=== PATIENT | male | born 1965 | race Caucasian/White ===

== ENCOUNTER 2019-06-19 13:23 | Emergency (ER) | payer BC ==
--- NOTE | 2019-06-19 13:33 | EDM.PDOC ---
ED HPI GENERAL MEDICAL PROBLEM - General Chief Complaint: Abdominal Pain Stated Complaint: KIDNEY STONE Time Seen by Provider: 06/19/19 13:32 Source of Information: Reports: Patient History Limitations: Reports: No Limitations - History of Present Illness INITIAL COMMENTS - FREE TEXT/NARRATIVE: Patient is a 54-year-old male is complaining of having left pelvic pain is been ongoing for the past 2 weeks. Patient states pain is worse with movement describes as sharp stabbing in nature. He was seen by his PCP for this and had a hip x-ray the patient feels this is more abdominal. He rates the pain is 7-8 out of 10 in intensity described as sharp and stabbing. He is not feeling nauseous has had no vomiting. He denies any dysuria or hematuria. He has been taking some ibuprofen with partial relief of his pain symptoms. Denies any bloody or tarry looking stools. Pain is not worse with appetite but is worse with movement. Duration: Week(s): (two) Location: Reports: Pelvis Quality: Reports: Sharp, Stabbing Severity: Severe Improves with: Reports: Rest Worsens with: Reports: Movement Associated Symptoms: Reports: No Other Symptoms Treatments [employer]OCIATE: Reports: NSAIDS Left Lower Abdomen Pain Score (Numeric/FACES): 8 - Related Data Allergies Allergy/AdvReac Type Severity Reaction Status Date / Time No Known Allergies Allergy Verified 06/19/19 13:32 Home Meds: Home Meds Levothyroxine [Synthroid] 50 mcg PO DAILY 06/19/19 [History] lisinopriL [Lisinopril] 20 mg PO DAILY 06/19/19 [History] Past Medical History Other Gastrointestinal History: Hepatitis C - Past Surgical History Other Male Surgeries/Procedures: hx ESWL with stent placement Other Musculoskeletal Surgeries/Procedures:: hx shoulder arthroscopy ED ROS GENERAL - Review of Systems Review Of Systems: Comprehensive ROS is negative, except as noted in HPI. ED EXAM, GI/ABD - Physical Exam Exam: See Below Text/Narrative:: Exam: See Below Exam Limited By: No Limitations Head: Atraumatic Neck: Normal Inspection. No: Carotid Bruit, Lymphadenopathy (R) Respiratory/Chest: No Respiratory Distress, Lungs Clear, Normal Breath Sounds, No Accessory Muscle Use. No: Chest Non-Tender Cardiovascular: Normal Peripheral Pulses, Regular Rate, Rhythm, No Edema, No JVD GI/Abdominal: Normal Bowel Sounds, Tender slightly on left pelvis. No rebound no guarding no mass appreciated. No inguinal hernia. Back Exam: Normal Inspection. No: CVA Tenderness (R) Extremities: Normal Inspection. No: No Pedal Edema Neurological: Alert, Oriented, Normal Cognition Psychiatric: Normal Affect Skin Exam: Warm Lymphatic: No Adenopathy Course - Vital Signs Text/Narrative:: CT scan urine and other lab work all returned normal. I am uncertain what is causing patient's pain symptoms are probably is musculoskeletal in etiology. He has an appointment to follow-up with his PCP later this week. Last Recorded V/S: Last Vital Signs Temp 36.7 C 06/19/19 13:34 Pulse 81 06/19/19 13:34 Resp 16 06/19/19 13:34 BP 157/103 H 06/19/19 13:34 Pulse Ox 100 06/19/19 13:34 - Orders/Labs/Meds Labs: Laboratory Tests 06/19/19 06/19/19 06/19/19 Range/Units 13:42 13:42 15:04 WBC 8.73 (4.0-11.0) K/uL RBC 4.93 (4.50-5.90) M/uL Hgb 15.7 (13.0-17.0) g/dL Hct 45.3 (38.0-50.0) % MCV 91.9 (80.0-98.0) fL MCH 31.8 (27.0-32.0) pg MCHC 34.7 (31.0-37.0) g/dL RDW Std Deviation 43.0 (28.0-62.0) fl RDW Coeff of Burt 13 (11.0-15.0) % Plt Count 98 L (150-400) K/uL MPV 13.60 H (7.40-12.00) fL Neut % (Auto) 67.0 (48.0-80.0) % Lymph % (Auto) 22.9 (16.0-40.0) % [place] % (Auto) 5.8 (0.0-15.0) % Eos % (Auto) 4.0 (0.0-7.0) % Baso % (Auto) 0.3 (0.0-1.5) % Neut # (Auto) 5.8 H (1.4-5.7) K/uL Lymph # (Auto) 2.0 (0.6-2.4) K/uL [place] # (Auto) 0.5 (0.0-0.8) K/uL Eos # (Auto) 0.4 (0.0-0.7) K/uL Baso # (Auto) 0.0 (0.0-0.1) K/uL Nucleated RBC % 0.0 /100WBC Nucleated RBCs # 0 K/uL Sodium 143 (136-148) mmol/L Potassium 4.2 (3.5-5.1) mmol/L Chloride 104 (98-107) mmol/L Carbon Dioxide 26.8 (21.0-32.0) mmol/L BUN 12 (7.0-18.0) mg/dL Creatinine 0.9 (0.8-1.3) mg/dL Est Cr Clr Drug Dosing 105.84 mL/min Estimated GFR (MDRD) > 60.0 ml/min Glucose 88 (74-106) mg/dL Calcium 9.7 (8.5-10.1) mg/dL Total Bilirubin 0.4 (0.2-1.0) mg/dL AST 21 (15-37) IU/L ALT 20 (14-63) IU/L Alkaline Phosphatase 79 (46-116) U/L Total Protein 8.2 (6.4-8.2) g/dL Albumin 4.3 (3.4-5.0) g/dL Globulin 3.9 (2.6-4.0) g/dL Albumin/Globulin Ratio 1.1 (0.9-1.6) Urine Color YELLOW Urine Appearance CLEAR Urine pH 7.0 (5.0-8.0) Ur Specific [place] 1.010 (1.001-1.035) Urine Protein NEGATIVE (NEGATIVE) mg/dL Urine Glucose (UA) NEGATIVE (NEGATIVE) mg/dL Urine Ketones NEGATIVE (NEGATIVE) mg/dL Urine Occult Blood NEGATIVE (NEGATIVE) Urine Nitrite NEGATIVE (NEGATIVE) Urine Bilirubin NEGATIVE (NEGATIVE) Urine Urobilinogen 0.2 (<2.0) EU/dL Ur Leukocyte Esterase NEGATIVE (NEGATIVE) Urine RBC 1-3 (0-2/HPF) Urine WBC 0-2 (0-5/HPF) Ur Epithelial Cells OCCASIONAL (NONE-FEW) Urine Bacteria RARE (NEGATIVE) Urine Mucus LIGHT (NONE-MOD) Meds: Medications Discontinued Medications Generic Name Dose Route Start Last Admin Trade Name Earlene PRN Reason Stop Dose Admin Sodium Chloride 1,000 mls @ 999 mls/hr 06/19/19 13:58 06/19/19 14:10 Normal Saline IV 06/19/19 14:58 999 mls/hr .BOLUS ONE Administration Ketorolac Tromethamine 30 mg 06/19/19 13:58 06/19/19 14:12 Toradol IVPUSH 06/19/19 13:59 30 mg ONETIME ONE Administration Departure - Departure Time of Disposition: 15:29 Disposition: Home, Self-Care 01 Condition: Good Clinical Impression: Pelvic pain in male - Discharge Information Referrals: Fortino Locke MD [Primary Care Provider] - Forms: ED Department Discharge Additional Instructions: Ibuprofen with meals. Follow-up with PCP for recheck as scheduled. Return to emergency department any fever chills vomiting or worse pain. Care Plan Goals: The following information is given to patients seen in the emergency department who are being discharged to home. This information is to outline your options for follow-up care. We provide all patients seen in our emergency department with a follow-up referral. The need for follow-up, as well as the timing and circumstances, are variable depending upon the specifics of your emergency department visit. If you don't have a primary care physician on staff, we will provide you with a referral. We always advise you to contact your personal physician following an emergency department visit to inform them of the circumstance of the visit and for follow-up with them and/or the need for any referrals to a consulting specialist. The emergency department will also refer you to a specialist when appropriate. This referral assures that you have the opportunity for follow-up care with a specialist. All of these measure are taken in an effort to provide you with optimal care, which includes your follow-up. Under all circumstances we always encourage you to contact your private physician who remains a resource for coordinating your care. When calling for follow-up care, please make the office aware that this follow-up is from your recent emergency room visit. If for any reason you are refused follow-up, please contact the [facility] Emergency Department at and asked to speak to the emergency department charge nurse. Sepsis Event Note - Focused Exam Vital Signs: Vital Signs Temp Pulse Resp BP Pulse Ox 06/19/19 13:34 36.7 C 81 16 157/103 H 100 Date Exam was Performed: 06/19/19 Time Exam was Performed: 15:27
[2019-06-19] MEDS ORDERED: Sodium Chloride 0.9% 1,000 ML IV ONE (13:58)
[2019-06-19] MEDS ORDERED: Ketorolac 30 MG/ML SDV IVPUSH ONE (13:58)
[2019-06-19 14:24] LABS: BLOOD UREA NITROGEN,BUN 12 mg/dL (7.0-18.0); CARBON DIOXIDE,CO2 26.8 mmol/L (21.0-32.0); CHLORIDE,CL 104 mmol/L (98-107); GLUCOSE RANDOM 88 mg/dL (74-106); POTASSIUM,K 4.2 mmol/L (3.5-5.1); SODIUM,NA 143 mmol/L (136-148)
--- NOTE | 2019-06-19 14:56 | CT ---
CT abdomen and pelvis Technique: Multiple axial sections were obtained from above the dome of the diaphragm inferiorly through the pubic symphysis. Intravenous and oral contrast not utilized. Comparison: No previous abdominal imaging. Findings: Visualized lung bases show nothing acute. Liver contains no focal abnormality. Gallbladder contains no calcified gallstones. Spleen appears within normal limits. Adrenal glands show no nodule. 2 nonobstructing calculi are seen within the left kidney. Largest stone measures 4.7 mm. No ureteral dilatation or ureteral stone is seen. Pancreas is within normal limits. Gallbladder contains no calcified gallstones. Aorta shows atherosclerotic calcification which continues into the iliac vessels. No aneurysm is seen. No retroperitoneal adenopathy or mesenteric abnormalities are seen. Small fat-containing umbilical hernia is noted. Appendix is seen which is normal in size. No free fluid or inflammatory change is seen. Mild diverticuli are seen within the sigmoid and descending colon without inflammatory change of diverticulitis. Bone window settings were reviewed shows nothing acute. Impression: 1. 2 nonobstructing calculi within the left kidney. No ureteral dilatation or ureteral stone is seen. 2. Other findings believed to be incidental as noted above. Nothing acute is appreciated. Diagnostic code #2 This report was dictated in [place] Standard Time
[2019-06-19 15:50] VITALS: BP 148/93; PULSE 75
== END 2019-06-19 15:50 | disposition home or self-care (01) ==
LOC: MW.ED 13:23
DX: R10.2 Pelvic and perineal pain (principal); Z79.899 Other long term (current) drug therapy
CPT/HCPCS: 36415; 74176; 80053; 81001; 85025; 96361; 96374; 99284; J1885; J7030

== ENCOUNTER 2021-08-30 00:14 | Emergency (ER) | payer BC ==
[2021-08-30] MEDS ORDERED: Ketorolac 30 MG/ML SDV IVPUSH ONE (00:50)
[2021-08-30] MEDS ORDERED: Sodium Chloride 0.9% 20 ML SDV IV PRN (00:51)
[2021-08-30] MEDS ORDERED: Sodium Chloride 0.9% 1,000 ML IV ONE (00:52)
[2021-08-30 01:08] LABS: BLOOD UREA NITROGEN,BUN 17 mg/dL (7.0-18.0); CARBON DIOXIDE,CO2 26.1 mmol/L (21.0-32.0); CHLORIDE,CL 103 mmol/L (98-107); GLUCOSE RANDOM 108 mg/dL (74-106); SODIUM,NA 136 mmol/L (136-148)
[2021-08-30] MEDS ORDERED: Tamsulosin 0.4 MG Cap.ER PO STA (02:36)
[2021-08-30 02:51] VITALS: BP 145/99; PULSE 78
== END 2021-08-30 02:51 | disposition home or self-care (01) ==
LOC: MW.ED 00:14
DX: N13.2 Hydronephrosis with renal and ureteral calculous obstruction (principal); E03.9 Hypothyroidism, unspecified; I10 Essential (primary) hypertension; Z79.899 Other long term (current) drug therapy; Z72.0 Tobacco use
CPT/HCPCS: 36415; 74176; 80048; 81001; 85025; 96374; 99284; A9270; J1885; J7030

== ENCOUNTER 2023-06-30 07:57 | Day surgery (SDC) | payer BC ==
[2023-06-30] MEDS: Lactated Ringers 1,000 ML IV SCH (08:21)
[2023-06-30] MEDS ORDERED: propofoL 50 ML ONE (09:43)
[2023-06-30 10:50] VITALS: BP 106/67; PULSE 76
== END 2023-06-30 11:00 | disposition home or self-care (01) ==
LOC: MW.SDS 07:57
PROVIDERS: ATTEND Surgery
DX: Z12.11 Encounter for screening for malignant neoplasm of colon (principal); D12.6 Benign neoplasm of colon, unspecified; K62.1 Rectal polyp; K57.30 Diverticulosis of large intestine without perforation or abscess without bleeding; E03.9 Hypothyroidism, unspecified; I10 Essential (primary) hypertension; F17.210 Nicotine dependence, cigarettes, uncomplicated; J45.909 Unspecified asthma, uncomplicated; Z98.890 Other specified postprocedural states; Z79.899 Other long term (current) drug therapy; Z79.890 Hormone replacement therapy
CPT/HCPCS: 45380; J2704; J7120; 00811

== ENCOUNTER 2023-11-23 05:57 | Emergency (ER) | payer BC ==
[2023-11-23] MEDS: Acetaminophen/HYDROcodone 325-5 MG Tab PO ONE (06:38)
[2023-11-23] MEDS: Ketorolac 30 MG/ML SDV IM ONE (06:39)
[2023-11-23] MEDS: Orphenadrine 60 MG/2 ML Inj IM ONE (06:39)
[2023-11-23 08:09] VITALS: BP 140/71; PULSE 79
== END 2023-11-23 08:08 | disposition home or self-care (01) ==
LOC: MW.ED 05:57
DX: M54.50 Low back pain, unspecified (principal); I10 Essential (primary) hypertension; E03.9 Hypothyroidism, unspecified; J45.909 Unspecified asthma, uncomplicated; Z75.8 Other problems related to medical facilities and other health care; Z79.51 Long term (current) use of inhaled steroids; Z79.890 Hormone replacement therapy
CPT/HCPCS: 72131; 96372; 99283; A9270; J1885; J2360

== ENCOUNTER 2024-11-13 05:18 | Emergency (ER) | payer BC ==
[2024-11-13 05:36] VITALS: BP 114/78; PULSE 111
== END 2024-11-13 05:39 | disposition home or self-care (01) ==
LOC: MW.ED 05:18
DX: T78.40XA Allergy, unspecified, initial encounter (principal); I10 Essential (primary) hypertension; E03.9 Hypothyroidism, unspecified; Z79.899 Other long term (current) drug therapy; Z79.890 Hormone replacement therapy
CPT/HCPCS: 99282; 99283